=== PATIENT | female | born 1945 | race Caucasian/White ===

== ENCOUNTER → 2021-09-19 | Outpatient (CLI) | payer MEDICARE, OTHER ==
[~2021-09-19] VITALS: Ht 160 cm; Wt 78.5 kg
== END ==
LOC: EROP 11:23
DX: U07.1 COVID-19 (principal); Z23 Encounter for immunization; E11.9 Type 2 diabetes mellitus without complications
CPT/HCPCS: M0247; Q0247

== ENCOUNTER → 2022-01-28 | Outpatient (CLI) | payer MEDICARE, OTHER | LOC: US 13:59 | DX: M79.606 Pain in leg, unspecified (principal) | CPT/HCPCS: 93970 ==